=== PATIENT | female | born 1970 | race Caucasian/White ===

== ENCOUNTER 2017-05-10 14:46 | Emergency (ER) | payer BC, OTHER ==
[~2017-05-10] VITALS: Ht 165.1 cm; Wt 125.0 kg
[~2017-05-10 14:46] MED LIST: CYAN1000P IM; CYCL5TAB PO; ESTR0.5T PO; FE T325T PO; FENT50DI T-DERMAL; LORTA5 PO; METH750T2 PO; ONDA1TAB17 PO; PREG75 PO; PROG100C PO; PROZ20CA11 PO; RANI150T PO; TAB-TAB PO; TRAZ50TA4 PO; VITA400C70 PO
[2017-05-10 15:08] VITALS: BP 126/65; PULSE 53; RESP 20; TEMP 98.4; O2SAT 95
--- NOTE | 2017-05-10 15:48 | PD ---
HPI Chief Complaint: Fall Time Seen by Provider: 15:14 Travel History International Travel<30 days: No Contact w/Intl Traveler<30days: No Traveled to known affect area: No History of Present Illness HPI 46 old female presents emergency department for evaluation of left shoulder, right knee, neck pain status post fall from a standing position. She reports she was carrying her infant grandchild when she tripped falling forward onto the right knee. She denies head injury or loss consciousness. She is not anticoagulated. She denies paresthesia or weakness in the extremity. She denies headache. She denies chest pain or abdominal pain. Symptoms severity moderate. Pain 7/10. Slightly improved with rest. PFSH Past Medical History Hx Anticoagulant Therapy: No Arthritis: Yes Asthma: Yes Autoimmune Disease: No Blood Disorders: No Anxiety: Yes Depression: Yes (denies depression at this time ) Cancer: No Cardiovascular Problems: Yes (htn) High Cholesterol: Yes Chemotherapy: No Cerebrovascular Accident: No Diabetes: No Diminished Hearing: No Endocrine: No Fibromyalgia: Yes Gastrointestinal Disorders: Yes (GERD; CONSTIPATION) GERD: Yes Genitourinary: Yes (RETENTION OF URINE) Headaches: Yes Hepatitis: No Hiatal Hernia: Yes (REPAIRED DURING GASTRIC BYPASS) Herniated Disk: Yes Hypertension: Yes (NO LONGER ON MEDS SINCE GASTRIC BY-PASS) Immune Disorder: No Implanted Vascular Access Dvce: No Kidney Stones: Yes Musculoskeletal: Yes (ARTHRITIS, BACK/NECK PROBLEMS) Neurologic: Yes (NUMBNESS/TINGLING ROE LOWER AND UPPER EXTREMITIES) Psychiatric: Yes (CLAUSTROPHOBIC, SEVERE ANXIETY) Reproductive: Yes Respiratory: No Immunizations Current: Yes Myocardial Infarction: Yes Pneumonia: Yes Sleep Apnea: Yes (no problems since weight loss ) Thyroid Disease: No PNEUMOCCOCAL Vaccine (Year): 2009 ?: Not : 2 Para: 2 Past Surgical History Abdominal Surgery: Yes (pyloric stenosis surgery, lap tanesha, GASTRIC BYPASS/ REPAIR OF HIATAL HERNI) AICD: No Arteriovenous Shunt: No Body Medical Devices: PT NOT SURE- ANTERIOR CERVICAL FUSION metal c5,6 Cardiac Surgery: No Cholecystectomy: Yes Ear Surgery: No Endocrine Surgery: No Eye Surgery: No Genitourinary Surgery: Yes Gynecologic Surgery: Yes (cryo of the cervix) Hysterectomy: Yes Insulin Pump: No Joint Replacement: No Neurologic Surgery: Yes (05/13 C5-6 ANTERIOR CERVICAL FUSION) Oral Surgery: Yes (T&A) Pacemaker: No Thoracic Surgery: No Tonsillectomy: Yes (AND ADENOIDS) Other Surgery: Yes (REPAIR OF PYLORIC STENOSIS) Family History Family Hypercholesterolemia: Yes (mother father) Social History Alcohol Use: Yes (RARE) Tobacco Use: No Substance Use: No ( ) Allergies-Medications (Allergen,Severity, Reaction): Coded Allergies: benzonatate (Verified Allergy, Severe, THROAT CLOSES, 05/10/17) gabapentin (Verified Allergy, Severe, SYNCOPE, 05/10/17) latex (Verified Allergy, Intermediate, ITCHING, BURNING, 05/10/17) amlodipine (Verified Allergy, Unknown, SWELLING, 05/10/17) ketorolac (Verified Adverse Reaction, Severe, VISUAL HALLUCINATION, COMBATIVE, AGITATION, 05/10/17) acebutolol (Verified Adverse Reaction, Intermediate, SOB, 05/10/17) atenolol (Verified Adverse Reaction, Intermediate, SOB, 05/10/17) benazepril (Verified Adverse Reaction, Intermediate, COUGH, 05/10/17) betaxolol (Verified Adverse Reaction, Intermediate, SOB, 05/10/17) captopril (Verified Adverse Reaction, Intermediate, COUGH, 05/10/17) carvedilol (Verified Adverse Reaction, Intermediate, SOB, 05/10/17) cephalexin (Verified Adverse Reaction, Intermediate, Nausea/Vomiting, 05/17) diclofenac (Verified Adverse Reaction, Intermediate, CAN'T HAVE POST GASTRIC BYPASS, 05/10/17) enalaprilat (Verified Adverse Reaction, Intermediate, COUGH, 05/10/17) epinephrine (Verified Adverse Reaction, Intermediate, TACHYCARDIA, ) etodolac (Verified Adverse Reaction, Intermediate, CAN'T HAVE POST GASTRIC BYPASS, 05/10/17) flurbiprofen (Verified Adverse Reaction, Intermediate, CAN'T HAVE POST GASTRIC BYPASS, 05/10/17) fosinopril (Verified Adverse Reaction, Intermediate, COUGH, 05/10/17) ibuprofen (Verified Adverse Reaction, Intermediate, CAN'T HAVE POST GASTRIC BYPASS, 05/10/17) indomethacin (Verified Adverse Reaction, Intermediate, CAN'T HAVE POST GASTRIC BYPASS, 05/10/17) ketamine (Verified Adverse Reaction, Intermediate, REDUCED BP, HEARTRATE, 05/10/17) ketoprofen (Verified Adverse Reaction, Intermediate, CAN'T HAVE POST GASTRIC BYPASS, 05/10/17) labetalol (Verified Adverse Reaction, Intermediate, SOB, 05/10/17) lisinopril (Verified Adverse Reaction, Intermediate, COUGH, 05/10/17) metoprolol (Verified Adverse Reaction, Intermediate, SOB, 05/10/17) naproxen (Verified Adverse Reaction, Intermediate, CAN'T HAVE POST GASTRIC BYPASS, 05/10/17) nebivolol (Verified Adverse Reaction, Intermediate, SOB, 05/10/17) oxaprozin (Verified Adverse Reaction, Intermediate, CAN'T HAVE POST GASTRIC BYPASS, 05/10/17) pindolol (Verified Adverse Reaction, Intermediate, SOB, 05/10/17) promethazine (Verified Adverse Reaction, Intermediate, HALLUCINATIONS, 05/17) propranolol (Verified Adverse Reaction, Intermediate, SOB, 05/10/17) quinapril (Verified Adverse Reaction, Intermediate, COUGH, 05/10/17) sotalol (Verified Adverse Reaction, Intermediate, SOB, 05/10/17) timolol (Verified Adverse Reaction, Intermediate, SOB, 05/10/17) adhesive (Verified Adverse Reaction, Mild, SKIN RASH, 05/10/17) Reported Meds & Prescriptions Reported Meds & Active Scripts Active Flexeril (Cyclobenzaprine HCl) 5 Mg Tab 2.5 Mg PO TID UNKNOWN DOSE Reported Ondansetron Hcl (Ondansetron HCl) 8 Mg Tab 8 Mg PO DAILY PRN Prozac (Fluoxetine HCl) 20 Mg Cap 20 Mg PO DAILY Progesterone 100 Mg Cap 100 Mg PO HS Robaxin (Methocarbamol) 750 Mg Tab 750 Mg PO BID Estradiol 0.5 Mg Tab 0.5 Mg PO DAILY Trazodone Hcl (Trazodone HCl) 50 Mg Tab 50 Mg PO HS Fe Tabs (Ferrous Sulfate) 325 Mg Tab 325 Mg PO DAILY Vitamin E 400 Units Cap 400 Units PO DAILY Multivitamin (Multivitamins) 1 Tab Tab 1 Tab PO DAILY Duragesic 50 Mcg/Hr (Fentanyl) 50 Mcg/Hr Patch 1 Patch T-DERMAL Q3D Hydrocodone/Acetaminophen 5 mg/325 mg 1 Tab 1 Tab PO BID PRN Ranitidine 150 mg (Ranitidine HCl) 150 Mg Tab 2 Tab PO BID Lyrica (Pregabalin) 75 Mg Cap 100 Mg PO BID Vitamin B12 (Cyanocobalamin) 1,000 Mcg/Ml Inj 1,000 Mcg IM MONTHLY Review of Systems Except as stated in HPI: all other systems reviewed are Neg General / Constitutional: No: Fever Eyes: No: Visual changes HENT: No: Headaches Physical Exam Narrative GENERAL: SKIN: Warm and dry. HEAD: Atraumatic. Normocephalic. EYES: Pupils equal and round. No scleral icterus. No injection or drainage. ENT: No nasal bleeding or discharge. Mucous membranes pink and moist. NECK: Trachea midline. No JVD. Cervical midline tenderness. C-collar placed. CARDIOVASCULAR: Regular rate and rhythm. No chest wall or rib tenderness RESPIRATORY: No accessory muscle use. Clear to auscultation. Breath sounds equal bilaterally. GASTROINTESTINAL: Abdomen soft, non-tender, nondistended. Hepatic and splenic margins not palpable. MUSCULOSKELETAL: Extremities without clubbing, cyanosis, or edema. No obvious deformities. right knee: TTP anterior aspect. no deformity. mild swelling w/ abrasion. Limited flexion due to pain. 2+ distal pulses. Left shoulder: TTP anterior aspect. no deformity or step off. limited abduction due to pain. 2+ distal pulses. NEUROLOGICAL: Awake and alert. No obvious cranial nerve deficits. Motor grossly within normal limits. Five out of 5 muscle strength in the arms and legs. Normal speech. Equal hand grasp. PSYCHIATRIC: Appropriate mood and affect; insight and judgment normal. Data Data Last Documented VS Vital Signs Date Time Temp Pulse Resp B/P (MAP) Pulse Ox O2 Delivery O2 Flow Rate FiO2 05/10/17 15:08 98.4 53 20 126/65 (85) [address] Cerv Spine W/O Contrast (05/10/17 ) Knee, Complete (4vws) (05/10/17 ) Shoulder, Complete (>2vws) (05/10/17 ) MDM Medical Decision Making Medical Screen Exam Complete: Yes Emergency Medical Condition: Yes Differential Diagnosis Cervical strain versus cervical fracture, right knee contusion versus strain versus fracture, left shoulder rotator cuff injury versus contusion versus fracture Narrative Course 46-year-old female presents to the emergency department for evaluation of left shoulder, right knee, neck pain status post fall from a standing position. Patient denies head injury or loss of consciousness. X-ray of the left shoulder: No fracture or dislocation X-ray right knee: No fracture CT of the cervical spine: No fracture Discussed Diagnostics findings with patient. She will be discharged home. Patient was advised to follow-up with primary care. Diagnosis Primary Impression: Strain of right knee Qualified Codes: S86.911A - Strain of unspecified muscle(s) and tendon(s) at lower leg level, right leg, initial encounter Additional Impressions: Cervical strain Qualified Codes: S16.1XXA - Strain of muscle, fascia and tendon at neck level , initial encounter Left shoulder strain Qualified Codes: S46.912A - Strain of unspecified muscle, fascia and tendon at shoulder and upper arm level, left arm, initial encounter Referrals: Primary Care Physician Additional Instructions: Take your pain medication as prescribed. Avoid heavy lifting or strenuous activity. Use ice or heat as needed for pain control. Follow-up with her primary doctor Disposition: DISCHARGE HOME Condition: Stable Nila De Jesus May 10, 2017 15:47
--- NOTE | 2017-05-10 16:46 | RADRPT ---
EXAM DATE/TIME: 05/10/2017 16:02 [facility] COMPARISON: No previous studies available for comparison. INDICATIONS : Right knee pain after fall. MEDICAL HISTORY : None. SURGICAL HISTORY : None. ENCOUNTER: Initial ACUITY: 1 day PAIN SCORE: 10/10 LOCATION: Right anterior knee. FINDINGS: Four view examination of the right knee demonstrates no evidence of fracture or dislocation. Bony mi neralization is normal. The articular surfaces are intact. The suprapatellar soft tissues have a no rmal configuration. CONCLUSION: No acute disease. Tino Diaz MD on May 10, 2017 at 16:44 Board Certified Radiologist. This report was verified electronically.
--- NOTE | 2017-05-10 16:46 | RADRPT ---
EXAM DATE/TIME: 05/10/2017 16:05 [facility] COMPARISON: No previous studies available for comparison. INDICATIONS : Left shoulder pain after fall. MEDICAL HISTORY : None. SURGICAL HISTORY : None. ENCOUNTER: Initial ACUITY: 1 day PAIN SCORE: 10/10 LOCATION: Left anterior shoulder. FINDINGS: Multiple view examination of the left shoulder demonstrates no evidence of fracture or dislocation. The glenohumeral and acromioclavicular joints are maintained. There is normal range of motion betwee n internal and external rotation. Bony mineralization is normal. CONCLUSION: No acute disease. Tino Diaz MD on May 10, 2017 at 16:44 Board Certified Radiologist. This report was verified electronically.
--- NOTE | 2017-05-10 17:16 | RADRPT ---
EXAM DATE/TIME: 05/10/2017 16:26 [facility] COMPARISON: CT CERVICAL SPINE W/O CONTRAST, February 21, 2016, 16:47. INDICATIONS : Fall, neck pain. RADIATION DOSE: 20.51 CTDIvol (mGy) MEDICAL HISTORY : Cardiovascular disease. Hypertension. SURGICAL HISTORY : Hysterectomy. ENCOUNTER: Initial ACUITY: 1 day PAIN SCALE: 5/10 LOCATION: Left neck TECHNIQUE: Volumetric scanning of the cervical spine was performed. Multiplanar reconstructions in the sagittal, coronal and oblique axial planes were performed. Using automated exposure control and adjustment o f the mA and/or kV according to patient size, radiation dose was kept as low as reasonably achievable to obtain optimal diagnostic quality images. DICOM format image data is available electronically f or review and comparison. FINDINGS: Craniocervical cervical vertebral body alignment are well-maintained without evidence of traumatic li sthesis. Bony structures are intact without evidence of compression fracture. Facet joints are satisfactorily aligned. Postsurgical changes are noted at C5-6 discectomy and anterior cervical fusion. Fusion apparatus appe ar stable compared to previous study. No soft tissue abnormalities are noted. CONCLUSION: 1. No acute process. 2. Stable post surgical changes at C5-6 following discectomy and fusion. Tino Diaz MD on May 10, 2017 at 17:12 Board Certified Radiologist. This report was verified electronically.
[2017-05-10 17:57] VITALS: BP 118/62
== END 2017-05-10 18:47 | disposition home or self-care (01) ==
LOC: NEPD 14:46
DX: S86.911A Strain of unspecified muscle(s) and tendon(s) at lower leg level, right leg, initial encounter (principal); S16.1XXA Strain of muscle, fascia and tendon at neck level, initial encounter; S46.912A Strain of unspecified muscle, fascia and tendon at shoulder and upper arm level, left arm, initial encounter; W01.0XXA Fall on same level from slipping, tripping and stumbling without subsequent striking against object, initial encounter
CPT/HCPCS: 72125; 73030; 73564; 99285

== ENCOUNTER 2017-07-20 15:09 | Emergency (ER) | payer SELFPAY ==
[~2017-07-20] VITALS: Ht 165.1 cm; Wt 82.6 kg
[2017-07-20 15:13] VITALS: BP 151/78; PULSE 92; RESP 18; TEMP 103; O2SAT 99
[2017-07-20 15:31] VITALS: BP 151/78; PULSE 89; RESP 18; TEMP 103; O2SAT 99
[2017-07-20] MEDS ORDERED: RANI300T PO (15:39)
[2017-07-20] MEDS ORDERED: GABA600T PO ×2 (15:39)
[2017-07-20] MEDS ORDERED: PROZ20CA11 PO (15:39)
[2017-07-20] MEDS ORDERED: FERR325T18 PO (15:39)
[2017-07-20] MEDS ORDERED: HYDR-3516 PO (15:39)
[2017-07-20] MEDS ORDERED: VITA200C3 PO (15:39)
[2017-07-20] MEDS ORDERED: FENT50DI T-DERMAL (15:39)
[2017-07-20] MEDS ORDERED: ZOFR8TAB PO (15:39)
[2017-07-20] MEDS ORDERED: MULTIVITAMIN PO (15:39)
[2017-07-20] MEDS ORDERED: ESTR0.5T PO (15:39)
[2017-07-20] MEDS ORDERED: CYAN1000P IM (15:39)
[2017-07-20] MEDS ORDERED: GABA300C5 PO (15:39)
[2017-07-20] MEDS ORDERED: TRAZ100T10 PO (15:39)
[2017-07-20 15:55] LABS: BASOPHIL # 0.4 TH/MM3 (0-0.2); BASOPHIL % 4.7 % (0.0-2.0); EOSINOPHIL # 0.1 TH/MM3 (0-0.4); EOSINOPHIL % 0.7 % (0.0-4.0); HEMATOCRIT 31.4 % (35.0-46.0); LYMPH % 7.5 % (9.0-44.0); LYMPHOCYTE # 0.7 TH/MM3 (1.0-4.8); MEAN CELL VOLUME 86.2 FL (80.0-100.0); MEAN CORPUSCULAR HEMOGLOBIN 27.6 PG (27.0-34.0); MEAN PLATELET VOLUME 8.1 FL (7.0-11.0); MONO % 6.8 % (0.0-8.0); MONOCYTE # 0.6 TH/MM3 (0-0.9); NEUT % 80.3 % (16.0-70.0); PLATELET COUNT 207 TH/MM3 (150-450); RED BLOOD COUNT 3.65 MIL/MM3 (4.00-5.30); RED CELL DISTRIBUTION WIDTH 13.6 % (11.6-17.2); WHITE BLOOD COUNT 8.8 TH/MM3 (4.0-11.0)
--- NOTE | 2017-07-20 15:56 | PD ---
HPI . Fever Chief Complaint: Cold / Flu Symptoms Time Seen by Provider: 15:50 Travel History International Travel<30 days: No Contact w/Intl Traveler<30days: No Traveled to known affect area: No History of Present Illness HPI Patient presents with chief complaint of fever. Onset was yesterday and is much worse today. He also has nasal congestion, rhinorrhea and cough. She states that her grandbaby was seen in the emergency department 2 days ago and diagnosed with rotavirus. She was exposed to the baby. She is complaining with chest pain which she rates 7/10. She states that she took a dose of Tylenol this morning but has taken no further Tylenol nor has she taken her usual [place] because "I knew I was coming here." PFSH Past Medical History Hx Anticoagulant Therapy: No Arthritis: Yes Asthma: Yes Autoimmune Disease: No Blood Disorders: No Anxiety: Yes Depression: Yes (denies depression at this time ) Cancer: No Cardiovascular Problems: Yes (HTN) High Cholesterol: Yes Chemotherapy: No Cerebrovascular Accident: No Diabetes: No Diminished Hearing: No Endocrine: No Fibromyalgia: Yes Gastrointestinal Disorders: Yes (GERD; CONSTIPATION) GERD: Yes Genitourinary: Yes (RETENTION OF URINE) Headaches: Yes Hepatitis: No Hiatal Hernia: Yes (REPAIRED DURING GASTRIC BYPASS) Herniated Disk: Yes Hypertension: Yes (NO LONGER ON MEDS SINCE GASTRIC BY-PASS) Immune Disorder: No Implanted Vascular Access Dvce: No Kidney Stones: Yes Musculoskeletal: Yes (ARTHRITIS, BACK/NECK PROBLEMS) Neurologic: Yes (NUMBNESS/TINGLING ROE LOWER AND UPPER EXTREMITIES) Psychiatric: Yes (CLAUSTROPHOBIC, SEVERE ANXIETY) Reproductive: Yes Respiratory: No Immunizations Current: Yes Myocardial Infarction: Yes Pneumonia: Yes Sleep Apnea: Yes (no problems since weight loss ) Thyroid Disease: No Tetanus Vaccination: < 5 Years Influenza Vaccination: Yes PNEUMOCCOCAL Vaccine (Year): 2009 ?: Not : 2 Para: 2 Past Surgical History Abdominal Surgery: Yes (pyloric stenosis surgery, lap tanesha, GASTRIC BYPASS/ REPAIR OF HIATAL HERNI) AICD: No Arteriovenous Shunt: No Body Medical Devices: PT NOT SURE- ANTERIOR CERVICAL FUSION metal c5,6 Cardiac Surgery: No Cholecystectomy: Yes Ear Surgery: No Endocrine Surgery: No Eye Surgery: No Genitourinary Surgery: Yes Gynecologic Surgery: Yes (cryo of the cervix) Hysterectomy: Yes Insulin Pump: No Joint Replacement: No Neurologic Surgery: Yes (05/13 C5-6 ANTERIOR CERVICAL FUSION) Oral Surgery: Yes (T&A) Pacemaker: No Thoracic Surgery: No Tonsillectomy: Yes (AND ADENOIDS) Other Surgery: Yes (REPAIR OF PYLORIC STENOSIS) Family History Family Hypercholesterolemia: Yes (mother father) Social History Alcohol Use: Yes (RARE) Tobacco Use: No Substance Use: No ( ) Allergies-Medications (Allergen,Severity, Reaction): Coded Allergies: benzonatate (Verified Allergy, Severe, THROAT CLOSES, 07/20/17) gabapentin (Verified Allergy, Severe, SYNCOPE, 07/20/17) latex (Verified Allergy, Intermediate, ITCHING, BURNING, 07/20/17) amlodipine (Verified Allergy, Unknown, SWELLING, 07/20/17) ketorolac (Verified Adverse Reaction, Severe, VISUAL HALLUCINATION, COMBATIVE, AGITATION, 07/20/17) acebutolol (Verified Adverse Reaction, Intermediate, SOB, 07/20/17) atenolol (Verified Adverse Reaction, Intermediate, SOB, 07/20/17) benazepril (Verified Adverse Reaction, Intermediate, COUGH, 07/20/17) betaxolol (Verified Adverse Reaction, Intermediate, SOB, 07/20/17) captopril (Verified Adverse Reaction, Intermediate, COUGH, 07/20/17) carvedilol (Verified Adverse Reaction, Intermediate, SOB, 07/20/17) cephalexin (Verified Adverse Reaction, Intermediate, Nausea/Vomiting, ) diclofenac (Verified Adverse Reaction, Intermediate, CAN'T HAVE POST GASTRIC BYPASS, 07/20/17) enalaprilat (Verified Adverse Reaction, Intermediate, COUGH, 07/20/17) epinephrine (Verified Adverse Reaction, Intermediate, TACHYCARDIA, ) etodolac (Verified Adverse Reaction, Intermediate, CAN'T HAVE POST GASTRIC BYPASS, 07/20/17) flurbiprofen (Verified Adverse Reaction, Intermediate, CAN'T HAVE POST GASTRIC BYPASS, 07/20/17) fosinopril (Verified Adverse Reaction, Intermediate, COUGH, 07/20/17) ibuprofen (Verified Adverse Reaction, Intermediate, CAN'T HAVE POST GASTRIC BYPASS, 07/20/17) indomethacin (Verified Adverse Reaction, Intermediate, CAN'T HAVE POST GASTRIC BYPASS, 07/20/17) ketamine (Verified Adverse Reaction, Intermediate, REDUCED BP, HEARTRATE, 07/20/17) ketoprofen (Verified Adverse Reaction, Intermediate, CAN'T HAVE POST GASTRIC BYPASS, 07/20/17) labetalol (Verified Adverse Reaction, Intermediate, SOB, 07/20/17) lisinopril (Verified Adverse Reaction, Intermediate, COUGH, 07/20/17) metoprolol (Verified Adverse Reaction, Intermediate, SOB, 07/20/17) naproxen (Verified Adverse Reaction, Intermediate, CAN'T HAVE POST GASTRIC BYPASS, 07/20/17) nebivolol (Verified Adverse Reaction, Intermediate, SOB, 07/20/17) oxaprozin (Verified Adverse Reaction, Intermediate, CAN'T HAVE POST GASTRIC BYPASS, 07/20/17) pindolol (Verified Adverse Reaction, Intermediate, SOB, 07/20/17) promethazine (Verified Adverse Reaction, Intermediate, HALLUCINATIONS, ) propranolol (Verified Adverse Reaction, Intermediate, SOB, 07/20/17) quinapril (Verified Adverse Reaction, Intermediate, COUGH, 07/20/17) sotalol (Verified Adverse Reaction, Intermediate, SOB, 07/20/17) timolol (Verified Adverse Reaction, Intermediate, SOB, 07/20/17) adhesive (Verified Adverse Reaction, Mild, SKIN RASH, 07/20/17) Reported Meds & Prescriptions Reported Meds & Active Scripts Active Reported Gabapentin 300 Mg Cap 300 Mg PO DAILY Gabapentin 600 Mg Tab 600 Mg PO DAILY Gabapentin 600 Mg Tab 600 Mg PO HS Vitamin E 200 Unit Cap 400 Units PO DAILY Trazodone (Trazodone HCl) 100 Mg Tablet 100 Mg PO HS Ranitidine (Ranitidine HCl) 300 Mg Tab 300 Mg PO BID Zofran (Ondansetron HCl) 8 Mg Tab 8 Mg PO DAILY [Multivitamin] 1 Tab PO DAILY Hydrocodone-Acetaminophen 5-325 mg Tab 1 Tab PO DIRECTED PRN Prozac (Fluoxetine HCl) 20 Mg Cap 20 Mg PO DAILY Fentanyl Patch 72 HR (Fentanyl) 50 Mcg/Hr Patch 50 Mcg T-DERMAL Q72H Remove old patch when new one placed. Ferrous Sulfate 325 Mg (65 Mg Iron) Tablet 325 Mg PO DAILY Estradiol 0.5 Mg Tab 0.5 Mg PO DAILY Cyanocobalamin Inj (Cyanocobalamin) 1,000 Mcg/Ml Inj 1,000 Mcg IM Q30D Review of Systems Except as stated in HPI: all other systems reviewed are Neg General / Constitutional: Positive: Fever, Chills HENT: Positive: Rhinorrhea, Congestion Cardiovascular: Positive: Chest Pain or Discomfort Respiratory: Positive: Cough Physical Exam Narrative Vital Signs Date Time Temp Pulse Resp B/P (MAP) Pulse Ox O2 Delivery O2 Flow Rate FiO2 07/20/17 15:31 103.0 89 18 151/78 (102) 99 Room Air 07/20/17 15:27 Room Air 07/20/17 15:13 103.0 92 18 151/78 (102) 99 GENERAL: Healthy-appearing woman who does not appear to be in any acute distress. He SKIN: warm/dry. Good color and turgor. HEAD: Normocephalic. Atraumatic. EYES: Pupils equal and round. No scleral icterus. No injection or drainage. ENT: Mild clear rhinorrhea. Mucous membranes pink and moist. NECK: Trachea midline. Full range of motion without pain.. No cervical lymphadenopathy. CARDIOVASCULAR: Regular rate and rhythm. Heart sounds are normal. RESPIRATORY: No accessory muscle use. Clear to auscultation. Breath sounds equal bilaterally. GASTROINTESTINAL: Abdomen soft. Nontender. Bowel sounds present. Nondistended. MUSCULOSKELETAL: No obvious deformities. NEUROLOGICAL: Awake and alert. No obvious cranial nerve deficits. Motor grossly within normal limits. Normal speech. PSYCHIATRIC: Appropriate mood and affect; insight and judgment normal. Data Data Last Documented VS Vital Signs Date Time Temp Pulse Resp B/P (MAP) Pulse Ox O2 Delivery O2 Flow Rate FiO2 07/20/17 15:31 103.0 89 18 151/78 (102) 99 Room Air Orders Orders Sepsis Workup Initiated (07/20/17 ) Complete Blood Count With Diff (07/20/17 15:40) Comprehensive Metabolic Panel (07/20/17 15:40) Lactic Acid Sepsis Protocol (07/20/17 15:40) Blood Culture (07/20/17 15:40) Iv Access Insert/Monitor (07/20/17 15:40) Influenzae A/B Antigen (07/20/17 15:50) Sodium Chlor 0.9% 1000 Ml Inj (Ns 1000 M (07/20/17 16:00) Ibuprofen (Motrin) (07/20/17 16:00) Labs Laboratory Tests Test 07/20/17 15:45 [facility] Medical Decision Making Medical Screen Exam Complete: Yes Emergency Medical Condition: Yes Differential Diagnosis Differential diagnosis of fever includes but is not limited to viral illness, strep throat, otitis media, pneumonia, sepsis, UTI Narrative Course This patient presents with fever. Septic workup has been initiated. I have ordered IV fluids and ibuprofen. Her care is being turned over to Dr. Brambila at this time. Diagnosis Primary Impression: Fever Qualified Codes: R50.9 - Fever, unspecified Condition: Stable Karin Bee MD Jul 20, 2017 15:56
[2017-07-20] MEDS ORDERED: ACETAMINOPHEN 325 MG TAB PO ONE (16:00)
[2017-07-20] MEDS ORDERED: SODIUM CHLOR 0.9% 1000 ML INJ 1,000 ML IV ONE (16:00)
[2017-07-20] MEDS ORDERED: IBUPROFEN 800 MG TAB PO ONE (16:00)
[2017-07-20 16:20] LABS: CHLORIDE 103 MEQ/L (98-107); SODIUM (NA) 137 MEQ/L (136-145)
[2017-07-20 16:23] LABS: ALBUMIN 3.3 GM/DL (3.4-5.0); BICARBONATE 26.7 MEQ/L (21.0-32.0); BLOOD UREA NITROGEN 10 MG/DL (7-18); CALCIUM 7.9 MG/DL (8.5-10.1); GLUCOSE,RANDOM 115 MG/DL (74-106)
[2017-07-20 16:26] LABS: ALT (GPT) 20 U/L (10-53); AST (GOT) 23 U/L (15-37); CREATININE 0.73 MG/DL (0.50-1.00); GLOMERULAR FILTRATION RATE 85 ML/MIN (>89)
[2017-07-20 16:28] LABS: TOTAL BILIRUBIN ADULT 0.4 MG/DL (0.2-1.0); TOTAL PROTEIN 6.5 GM/DL (6.4-8.2)
[2017-07-20 16:29] LABS: ALKALINE PHOSPHATASE 98 U/L (45-117)
[2017-07-20 17:16] VITALS: BP 131/54; PULSE 80; RESP 16; TEMP 102.5; O2SAT 93
--- NOTE | 2017-07-20 17:51 | PD ---
Data Data Last Documented VS Vital Signs Date Time Temp Pulse Resp B/P (MAP) Pulse Ox O2 Delivery O2 Flow Rate FiO2 07/20/17 17:16 102.5 80 16 131/54 (79) 93 Room Air Orders Orders Sepsis Workup Initiated (07/20/17 ) Complete Blood Count With Diff (07/20/17 15:40) Comprehensive Metabolic Panel (07/20/17 15:40) Lactic Acid Sepsis Protocol (07/20/17 15:40) Blood Culture (07/20/17 15:40) Iv Access Insert/Monitor (07/20/17 15:40) Influenzae A/B Antigen (07/20/17 15:50) Sodium Chlor 0.9% 1000 Ml Inj (Ns 1000 M (07/20/17 16:00) Ibuprofen (Motrin) (07/20/17 16:00) Acetaminophen (Tylenol) (07/20/17 16:00) Ed Discharge Order (07/20/17 17:49) Labs Laboratory Tests Test 07/20/17 15:45 White Blood Count 8.8 TH/MM3 Red Blood Count 3.65 MIL/MM3 Hemoglobin 10.0 GM/DL Hematocrit 31.4 % Mean Corpuscular Volume 86.2 FL Mean Corpuscular Hemoglobin 27.6 PG Mean Corpuscular Hemoglobin Concent 32.0 % Red Cell Distribution Width 13.6 % Platelet Count 207 TH/MM3 Mean Platelet Volume 8.1 FL Neutrophils (%) (Auto) 80.3 % Lymphocytes (%) (Auto) 7.5 % Monocytes (%) (Auto) 6.8 % Eosinophils (%) (Auto) 0.7 % Basophils (%) (Auto) 4.7 % Neutrophils # (Auto) 7.0 TH/MM3 Lymphocytes # (Auto) 0.7 TH/MM3 Monocytes # (Auto) 0.6 TH/MM3 Eosinophils # (Auto) 0.1 TH/MM3 Basophils # (Auto) 0.4 TH/MM3 CBC Comment DIFF FINAL Differential Comment Blood Urea Nitrogen 10 MG/DL Creatinine 0.73 MG/DL Random Glucose 115 MG/DL Total Protein 6.5 GM/DL Albumin 3.3 GM/DL Calcium Level 7.9 MG/DL Alkaline Phosphatase 98 U/L Aspartate Amino Transf (AST/SGOT) 23 U/L Alanine Aminotransferase (ALT/SGPT) 20 U/L Total Bilirubin 0.4 MG/DL Sodium Level 137 MEQ/L Potassium Level 3.6 MEQ/L Chloride Level 103 MEQ/L Carbon Dioxide Level 26.7 MEQ/L Anion Gap 7 MEQ/L Estimat Glomerular Filtration Rate 85 ML/MIN Lactic Acid Level 1.3 mmol/L MDM Supervised Visit with [facility]: No Narrative Course Case checked out to me at 4 PM by . I have reviewed the entirety of the workup with the patient and reevaluated her. She has symptoms consistent with acute viral syndrome and has a laryngitis-type of voice pattern. CBC and metabolic profiles are normal Cultures were done Lactate normal Influenza swab negative Patient received IV fluid Patient has a febrile illness but seems viral and I don't see indication for antibiotics at this time. She will call her family physician tomorrow to follow-up and return if worse She has no tachycardia or hypotension Diagnosis Primary Impression: Fever Qualified Codes: R50.9 - Fever, unspecified Additional Impressions: Laryngitis Acute viral syndrome Additional Instruction: The patient was advised to follow up with their physician and return if they worsen. Med/Other Pt SpecificInfo: Other Disposition: 01 DISCHARGE HOME Condition: Stable Brett Brambila MD Jul 20, 2017 17:51
[2017-07-20 18:00] VITALS: BP 116/51; TEMP 101.1
[2017-07-24] MEDS ORDERED: MULTTAB67 PO (10:43)
== END 2017-07-20 18:03 | disposition home or self-care (01) ==
LOC: PHED 15:09
DX: J04.0 Acute laryngitis (principal); R50.9 Fever, unspecified; B34.9 Viral infection, unspecified; J45.909 Unspecified asthma, uncomplicated; M79.7 Fibromyalgia; M19.90 Unspecified osteoarthritis, unspecified site; E78.00 Pure hypercholesterolemia, unspecified; K21.9 Gastro-esophageal reflux disease without esophagitis; I25.2 Old myocardial infarction; Z98.84 Bariatric surgery status
CPT/HCPCS: 80053; 83605; 85025; 87040; 87804; 96360; 99284; J7030

== ENCOUNTER 2017-11-13 15:58 | Emergency (ER) | payer SELFPAY ==
[~2017-11-13] VITALS: Ht 167.6 cm; Wt 80.5 kg
[~2017-11-13 15:58] MED LIST changes: -CYCL5TAB PO; -FE T325T PO; +FERR325T18 PO; +GABA300C5 PO; +GABA600T PO; +HYDR-3516 PO; -LORTA5 PO; -METH750T2 PO; +MULTTAB67 PO; -ONDA1TAB17 PO; -PREG75 PO; -PROG100C PO; -RANI150T PO; +RANI300T PO; -TAB-TAB PO; +TRAZ100T10 PO; -TRAZ50TA4 PO; +VITA200C3 PO; -VITA400C70 PO; +ZOFR8TAB PO
[2017-11-13 16:05] VITALS: BP 127/57; PULSE 68; RESP 16; TEMP 98.9; O2SAT 96
--- NOTE | 2017-11-13 17:23 | PD ---
HPI Chief Complaint: Musculoskeletal Complaint Time Seen by Provider: 16:45 Travel History International Travel<30 days: No Contact w/Intl Traveler<30days: No Traveled to known affect area: No History of Present Illness HPI 47-year-old female here with left proximal clavicle tenderness and swelling over the last month. Denies injury or trauma. Over the last 4 days she noticed an increase in size of the swelling prompting her visit today. Denies fever or chills, no new/worsening head or neck pain, chest pain, shortness of breath, or extremity swelling. She reports she has chronic pain and fibromyalgia and therefore has aches and pains "all over". She reports she has never had symptoms like this before. Symptom severity is moderate. Pain is reproduced by palpation of the clavicle and chest wall. No alleviating factors. PFSH Past Medical History Hx Anticoagulant Therapy: No Arthritis: Yes Asthma: Yes Autoimmune Disease: No Blood Disorders: No Anxiety: Yes Depression: Yes (denies depression at this time ) Cancer: No Cardiovascular Problems: Yes (HTN) High Cholesterol: Yes Chemotherapy: No Cerebrovascular Accident: No Diabetes: No Diminished Hearing: No Endocrine: No Fibromyalgia: Yes Gastrointestinal Disorders: Yes (GERD; CONSTIPATION) GERD: Yes Genitourinary: Yes (RETENTION OF URINE) Headaches: Yes Hepatitis: No Hiatal Hernia: Yes (REPAIRED DURING GASTRIC BYPASS) Herniated Disk: Yes Hypertension: Yes (NO LONGER ON MEDS SINCE GASTRIC BY-PASS) Immune Disorder: No Implanted Vascular Access Dvce: No Kidney Stones: Yes Medical other: No Musculoskeletal: Yes (ARTHRITIS, BACK/NECK PROBLEMS) Neurologic: Yes (NUMBNESS/TINGL[place] ROE LOWER AND UPPER EXTREMITIES) Psychiatric: Yes (CLAUSTROPHOBIC, SEVERE ANXIETY) Reproductive: Yes Respiratory: Yes Immunizations Current: Yes Myocardial Infarction: Yes Pneumonia: Yes Sleep Apnea: Yes (no problems since weight loss ) Thyroid Disease: No Tetanus Vaccination: < 5 Years PNEUMOCCOCAL Vaccine (Year): 2009 ?: Not : 2 Para: 2 Past Surgical History Abdominal Surgery: Yes (pyloric stenosis surgery, lap tanesha, GASTRIC BYPASS/ REPAIR OF HIATAL HERNI) AICD: No Arteriovenous Shunt: No Body Medical Devices: PT NOT SURE- ANTERIOR CERVICAL FUSION metal c5,6 Cardiac Surgery: No Cholecystectomy: Yes Ear Surgery: No Endocrine Surgery: No Eye Surgery: No Genitourinary Surgery: Yes Gynecologic Surgery: Yes (cryo of the cervix) Hysterectomy: Yes Insulin Pump: No Joint Replacement: No Neurologic Surgery: Yes (05/13 C5-6 ANTERIOR CERVICAL FUSION) Oral Surgery: Yes (T&A) Pacemaker: No Thoracic Surgery: No Tonsillectomy: Yes (AND ADENOIDS) Other Surgery: Yes (REPAIR OF PYLORIC STENOSIS) Family History Family Hypercholesterolemia: Yes (mother father) Social History Alcohol Use: Yes (RARE) Tobacco Use: No Substance Use: No ( ) Allergies-Medications (Allergen,Severity, Reaction): Coded Allergies: benzonatate (Verified Allergy, Severe, THROAT CLOSES, 11/13/17) gabapentin (Verified Allergy, Severe, SYNCOPE, 11/13/17) latex (Verified Allergy, Intermediate, ITCHING, BURNING, 11/13/17) amlodipine (Verified Allergy, Unknown, SWELLING, 11/13/17) ketorolac (Verified Adverse Reaction, Severe, VISUAL HALLUCINATION, COMBATIVE, AGITATION, 11/13/17) acebutolol (Verified Adverse Reaction, Intermediate, SOB, 11/13/17) atenolol (Verified Adverse Reaction, Intermediate, SOB, 11/13/17) benazepril (Verified Adverse Reaction, Intermediate, COUGH, 11/13/17) betaxolol (Verified Adverse Reaction, Intermediate, SOB, 11/13/17) captopril (Verified Adverse Reaction, Intermediate, COUGH, 11/13/17) carvedilol (Verified Adverse Reaction, Intermediate, SOB, 11/13/17) cephalexin (Verified Adverse Reaction, Intermediate, Nausea/Vomiting, 11/13) diclofenac (Verified Adverse Reaction, Intermediate, CAN'T HAVE POST GASTRIC BYPASS, 11/13/17) enalaprilat (Verified Adverse Reaction, Intermediate, COUGH, 11/13/17) epinephrine (Verified Adverse Reaction, Intermediate, TACHYCARDIA, 11/13/17 ) etodolac (Verified Adverse Reaction, Intermediate, CAN'T HAVE POST GASTRIC BYPASS, 11/13/17) flurbiprofen (Verified Adverse Reaction, Intermediate, CAN'T HAVE POST GASTRIC BYPASS, 11/13/17) fosinopril (Verified Adverse Reaction, Intermediate, COUGH, 11/13/17) ibuprofen (Verified Adverse Reaction, Intermediate, CAN'T HAVE POST GASTRIC BYPASS, 11/13/17) indomethacin (Verified Adverse Reaction, Intermediate, CAN'T HAVE POST GASTRIC BYPASS, 11/13/17) ketamine (Verified Adverse Reaction, Intermediate, REDUCED BP, HEARTRATE, 11/13/17) ketoprofen (Verified Adverse Reaction, Intermediate, CAN'T HAVE POST GASTRIC BYPASS, 11/13/17) labetalol (Verified Adverse Reaction, Intermediate, SOB, 11/13/17) lisinopril (Verified Adverse Reaction, Intermediate, COUGH, 11/13/17) metoprolol (Verified Adverse Reaction, Intermediate, SOB, 11/13/17) naproxen (Verified Adverse Reaction, Intermediate, CAN'T HAVE POST GASTRIC BYPASS, 11/13/17) nebivolol (Verified Adverse Reaction, Intermediate, SOB, 11/13/17) oxaprozin (Verified Adverse Reaction, Intermediate, CAN'T HAVE POST GASTRIC BYPASS, 11/13/17) pindolol (Verified Adverse Reaction, Intermediate, SOB, 11/13/17) promethazine (Verified Adverse Reaction, Intermediate, HALLUCINATIONS, ) propranolol (Verified Adverse Reaction, Intermediate, SOB, 11/13/17) quinapril (Verified Adverse Reaction, Intermediate, COUGH, 11/13/17) sotalol (Verified Adverse Reaction, Intermediate, SOB, 11/13/17) timolol (Verified Adverse Reaction, Intermediate, SOB, 11/13/17) adhesive (Verified Adverse Reaction, Mild, SKIN RASH, 11/13/17) Reported Meds & Prescriptions Reported Meds & Active Scripts Active Reported Multiple Vitamin 1 Tab 1 Tab PO DAILY Gabapentin 300 Mg Cap 300 Mg PO DAILY Gabapentin 600 Mg Tab 600 Mg PO DAILY Gabapentin 600 Mg Tab 600 Mg PO HS Vitamin E 200 Unit Cap 400 Units PO DAILY Trazodone (Trazodone HCl) 100 Mg Tablet 100 Mg PO HS Ranitidine (Ranitidine HCl) 300 Mg Tab 300 Mg PO BID Zofran (Ondansetron HCl) 8 Mg Tab 8 Mg PO DAILY Hydrocodone-Acetaminophen 5-325 mg Tab 1 Tab PO DIRECTED PRN Prozac (Fluoxetine HCl) 20 Mg Cap 20 Mg PO DAILY Fentanyl Patch 72 HR (Fentanyl) 50 Mcg/Hr Patch 50 Mcg T-DERMAL Q72H Remove old patch when new one placed. Ferrous Sulfate 325 Mg (65 Mg Iron) Tablet 325 Mg PO DAILY Estradiol 0.5 Mg Tab 0.5 Mg PO DAILY Cyanocobalamin Inj (Cyanocobalamin) 1,000 Mcg/Ml Inj 1,000 Mcg IM Q30D Review of Systems Except as stated in HPI: all other systems reviewed are Neg General / Constitutional: No: Fever Eyes: No: Visual changes HENT: No: Headaches Cardiovascular: No: Chest Pain or Discomfort Respiratory: No: Shortness of Breath Gastrointestinal: No: Abdominal Pain Genitourinary: No: Dysuria Physical Exam Narrative GENERAL: Alert and well-appearing 47-year-old female SKIN: Warm and dry. HEAD: Atraumatic. Normocephalic. EYES: No injection or drainage. ENT: No nasal bleeding or discharge. Mucous membranes pink and moist. NECK: Trachea midline. No JVD. No palpable neck mass or lymphadenopathy. Chest wall: + Mild swelling and positive TTP to the proximal clavicle. No overlying erythema or warmth. CARDIOVASCULAR: Regular rate and rhythm. RESPIRATORY: No accessory muscle use. Clear to auscultation. Breath sounds equal bilaterally. GASTROINTESTINAL: Abdomen soft, non-tender, nondistended. Hepatic and splenic margins not palpable. MUSCULOSKELETAL: Extremities without clubbing, cyanosis, or edema. No obvious deformities. Palpable pulses in all extremities. PSYCHIATRIC: Appropriate mood and affect; insight and judgment normal. Data Data Last Documented VS Vital Signs Date Time Temp Pulse Resp B/P (MAP) Pulse Ox O2 Delivery O2 Flow Rate FiO2 11/13/17 16:05 98.9 68 16 127/57 (80) 96 Orders Orders Clavicle (11/13/17 ) Chest, Single Ap (11/13/17 ) [facility] Medical Decision Making Medical Screen Exam Complete: Yes Emergency Medical Condition: Yes Differential Diagnosis Sternoclavicular joint injury, sternoclavicular joint arthritis, other Narrative Course 47-year-old female here with tenderness and reported swelling of the proximal clavicle with no known injury. On exam patient does have mild swelling and tenderness along the proximal clavicle. No jugular vein distention. No neck mass or tenderness. X-ray clavicle and chest are negative for bony abnormality. Findings were discussed with patient. She agrees to follow-up with her doctor this week. Return precautions were discussed. Diagnosis Primary Impression: Sternoclavicular joint pain Qualified Codes: M25.512 - Pain in left shoulder Referrals: Primary Care Physician Additional Instructions: Follow-up with her primary doctor this week. Return to emergency department if he develop any worsening symptoms. Disposition: 01 DISCHARGE HOME Condition: Stable Nila De Jesus Nov 13, 2017 17:23
--- NOTE | 2017-11-13 17:29 | RADRPT ---
EXAM DATE/TIME: 11/13/2017 17:09 [facility] COMPARISON: No previous studies available for comparison. INDICATIONS : Swelling over clacicle for 1 month, has pain for last 4 days. no known injury MEDICAL HISTORY : None. SURGICAL HISTORY : spinal ENCOUNTER: Initial ACUITY: 1 month PAIN SCORE: 4/10 LOCATION: Left clavicle FINDINGS: Two view examination of the left clavicle demonstrates no evidence of fracture. The sternoclavicular joints and acromioclavicular joints are maintained. Bony mineralization is normal. CONCLUSION: Unremarkable limited examination of the left clavicle. Waqar Mederos MD on November 13, 2017 at 17:27 Board Certified Radiologist. This report was verified electronically.
--- NOTE | 2017-11-13 17:30 | RADRPT ---
EXAM DATE/TIME: 11/13/2017 17:09 [facility] COMPARISON: CHEST SINGLE AP, February 21, 2016, 16:25. INDICATIONS : Swelling left clavicle area for 1 month, painfull for 4 days, no known injury MEDICAL HISTORY : None. SURGICAL HISTORY : spinal ENCOUNTER: Initial ACUITY: 1 month PAIN SCORE: 4/10 LOCATION: Left upper chest FINDINGS: A single view of the chest demonstrates the lungs to be symmetrically aerated without evidence of mas s, infiltrate or effusion. The cardiomediastinal contours are unremarkable. Osseous structures are intact. CONCLUSION: No acute disease. Waqar Mederos MD on November 13, 2017 at 17:28 Board Certified Radiologist. This report was verified electronically.
== END 2017-11-13 18:23 | disposition home or self-care (01) ==
LOC: PHEFT 15:58
DX: M25.512 Pain in left shoulder (principal); M79.7 Fibromyalgia; M19.90 Unspecified osteoarthritis, unspecified site; J45.909 Unspecified asthma, uncomplicated; F41.9 Anxiety disorder, unspecified; I10 Essential (primary) hypertension; E78.00 Pure hypercholesterolemia, unspecified; K21.9 Gastro-esophageal reflux disease without esophagitis; I25.2 Old myocardial infarction
CPT/HCPCS: 71045; 73000; 99284